=== PATIENT | female | born 1970 | race African-American/Black ===

== ENCOUNTER 2020-06-08 08:04 | Outpatient (CLI) | payer BC | END 2020-06-08 08:05 | disposition home or self-care (01) | LOC: BICMAMMO 08:04 | PROVIDERS: ATTEND Internal Medicine Rheumatology | DX: M81.0 Age-related osteoporosis without current pathological fracture (principal); M85.89 Other specified disorders of bone density and structure, multiple sites | CPT/HCPCS: 77080 ==